=== PATIENT | female | born 1965 | race Caucasian/White ===

== ENCOUNTER 2020-08-25 06:19 | Day surgery (SDC) | payer OTHER, SELFPAY ==
[~2020-08-25] VITALS: Ht 157.5 cm; Wt 65.8 kg
[2020-08-25 07:16] VITALS: BP 114/70
[2020-08-25 11:46] VITALS: BP 145/86
== END 2020-08-25 11:40 | disposition home or self-care (01) ==
LOC: DS 06:19 → OR 08:30 → DS 11:40
PROVIDERS: ATTEND Obstetrics & Gynecology
DX: N75.1 Abscess of Bartholin's gland (principal); Z90.49 Acquired absence of other specified parts of digestive tract; Z98.891 History of uterine scar from previous surgery; Z85.850 Personal history of malignant neoplasm of thyroid
CPT/HCPCS: J0131; J0690; J2001; J2405; J2704; J3010; J3490